=== PATIENT | female | born 1975 | race Caucasian/White ===

== ENCOUNTER → 2022-03-08 | Outpatient (CLI) | payer SELFPAY ==
[~2022-03-08] MED LIST: LEXAPRO 10MG10 MG PO; RT ALBUTEROL I6.8 GM INH; SYNTHROID0.125 MG/T PO
== END ==
LOC: MAMMO 09:54
DX: Z12.31 Encounter for screening mammogram for malignant neoplasm of breast (principal)

== ENCOUNTER → 2022-03-08 | Outpatient (CLI) | payer BC | LOC: RAD 09:08 | DX: M47.22 Other spondylosis with radiculopathy, cervical region (principal); M50.10 Cervical disc disorder with radiculopathy, unspecified cervical region ==